=== PATIENT | male | born 1950 | race Caucasian/White ===

== ENCOUNTER → 2016-10-27 | Outpatient (CLI) | payer BC ==
--- NOTE | 2016-10-27 08:10 | DIAGNOSTIC IMAGING REPORT ---
ULTRASOUND EXAM AAA SCREEN CLINICAL HISTORY: Z13.6 screening for abdominal aortic aneurysm COMPARISON STUDY: No previous studies for comparison. FINDINGS: The maximal aortic diameter is 21 mm. No aneurysm is visualized. The right common iliac measures 9 mm, and the left common iliac measures 10 mm. IMPRESSION: No evidence of abdominal aortic aneurysm. Electronically signed by: Brandt Garzon M.D. 10/27/2016 8:08 AM Dictated Date/Time: 10/27/2016 8:07 AM
== END | disposition home or self-care (01) ==
LOC: C.ULTR 07:20
PROVIDERS: ATTEND Family Medicine
DX: Z13.6 Encounter for screening for cardiovascular disorders (principal)

== ENCOUNTER → 2017-05-11 | Outpatient (CLI) | payer BC ==
--- NOTE | 2017-05-11 20:05 | ECHOCARDIOGRAM REPORT ---
*NOTICE TO RECEIVING CONSTITUTION PARTY AGENCY This information is strictly Confidential and protected under [place] law. [place] law prohibits you from making any further disclosure of this information unless further disclosure is expressly permitted by the written consent of the person to whom it pertains or is authorized by law. A general authorization for the release of medical or other information is not sufficient for this purpose. Hospital accepts no responsibility if the information is made available to any other person, INCLUDING THE PATIENT. Interpretation Summary * : AROLDO SOTOMAYOR Study Date: 05/11/2017 12:46 PM BP: 81/65 mmHg * Patient Location: [facility] HR: 147 * : 1950 (M/d/yyyy) Gender: Male Height: 72 in * Age: 66 yrs Ethnicity: [place] Weight: 168 lb * Ordering Physician: Pedro Wallace * Referring Physician: Pedro Wallace * Performed By: Shalini Mitchell RCS * * Reason For Study: DYSPNEA / FATIGUE WITH ELEVATED BP * BSA: 2.0 m2 * -- Conclusions -- * 1. Normal left ventricular size and systolic function. EF 55-60%. No regional wall motion abnormalities. Mild concentric left ventricular hypertrophy. * 2. No significant valvular abnormalities visualized. * 3. Normal estimated right ventricular systolic pressure; 23mmHg. * 4. No prior study available for comparison. Procedure Details * A complete two-dimensional transthoracic echocardiogram was performed (2D, M-mode, Doppler and color flow Doppler). Left Ventricle * The left ventricle is normal in size. * There is mild concentric left ventricular hypertrophy. * Left ventricular systolic function is normal. * No regional wall motion abnormalities noted. Right Ventricle * The right ventricle is normal in size and function. * The right ventricular systolic function is normal as assessed by tricuspid annular plane systolic excursion (TAPSE) (normal >1.5 cm). Atria * The left atrial size is normal. * Right atrial size is normal. * There is no evidence of atrial septal defect, but resolution does not allow assessment for a patent foramen ovale. Mitral Valve * The mitral valve leaflets appear normal. There is no evidence of stenosis, fluttering, or prolapse. * There is trace mitral regurgitation. Tricuspid Valve * The tricuspid valve is not well visualized, but is grossly normal. * There is no tricuspid stenosis. * There is trace tricuspid regurgitation. Aortic Valve * The aortic valve is trileaflet. * No hemodynamically significant valvular aortic stenosis. * No aortic regurgitation is present. Pulmonic Valve * The pulmonary valve is inadequately visualized, but the Doppler data is adequate for interpretation. * There is no pulmonic valvular stenosis. * Trace pulmonic valvular regurgitation. Great Vessels * The aortic root is normal size. Pericardium/Pleural * There is no pericardial effusion. Great Vessels * Normal inferior vena cava size and collapsability with sniff indicates a normal right atrial pressure of 3 mmHg MMode 2D Measurements and Calculations IVSd 1.3 cm IVSs 1.7 cm LVIDd 3.5 cm LVIDs 2.5 cm LVPWd 1.2 cm LVPWs 1.6 cm IVS/LVPW 1.1 FS 28.2 % EDV(Teich) 51.9 ml ESV(Teich) 23.1 ml EF(Teich) 55.5 % EDV(cubed) 43.9 ml ESV(cubed) 16.3 ml EF(cubed) 63.0 % % IVS thick 32.7 % % LVPW thick 31.4 % LV mass(C)d 142.8 grams LV mass(C)dI 72.2 grams/m\S\2 LV mass(C)s 148.0 grams LV mass(C)sI 74.8 grams/m\S\2 SV(Teich) 28.8 ml SI(Teich) 14.6 ml/m\S\2 SV(cubed) 27.7 ml SI(cubed) 14.0 ml/m\S\2 Ao root diam 3.5 cm Ao root area 9.8 cm\S\2 ACS 1.8 cm LA dimension 2.3 cm LA/Ao 0.66 LVOT diam 2.0 cm LVOT area 3.2 cm\S\2 Doppler Measurements and Calculations MV E max clayton 69.0 cm/sec MV A max clayton 49.1 cm/sec MV E/A 1.4 MV P1/2t max clayton 79.6 cm/sec MV P1/2t 78.8 msec MVA(P1/2t) 2.8 cm\S\2 MV dec slope 295.8 cm/sec\S\2 MV dec time 0.23 sec Ao V2 max 106.9 cm/sec Ao max PG 4.6 mmHg Ao max PG (full) 0.84 mmHg SONDRA(V,A) 2.8 cm\S\2 SONDRA(V,D) 2.8 cm\S\2 LV V1 max PG 3.7 mmHg LV V1 max 96.5 cm/sec PA V2 max 69.4 cm/sec PA max PG 1.9 mmHg TR max clayton 224.8 cm/sec RVSP(TR) 23.2 mmHg RAP systole 3.0 mmHg
== END | disposition home or self-care (01) ==
LOC: C.CPL 12:23
PROVIDERS: ATTEND Family Medicine
DX: R06.02 Shortness of breath (principal); R53.81 Other malaise